=== PATIENT | female | born 1955 | race Caucasian/White ===

== ENCOUNTER 2017-04-04 06:53 | Day surgery (SDC) | payer BC ==
[~2017-04-04] VITALS: Ht 154.9 cm; Wt 68.0 kg
[~2017-04-04 06:53] MED LIST: MECL-106 PO; OMEP20TA7 PO
[2017-04-04 07:40] LABS: BASOPHILS % (AUTO) 0 % (0-10); EOSINOPHILS % (AUTO) 0 % (0-10); LYMPHOCYTES # (AUTO) 1.4 X 10^3 (1.0-4.0); LYMPHOCYTES % (AUTO) 9 % (12-44); MEAN CORPUSCULAR HEMOGLOBIN 30 PG (25-34); MEAN CORPUSCULAR HGB CONC 34 G/DL (32-36); MEAN CORPUSCULAR VOLUME 88 FL (80-99); MEAN PLATELET VOLUME 11.2 FL (7.4-10.4); MONOCYTES # (AUTO) 0.3 X 10^3 (0.0-1.0); MONOCYTES % (AUTO) 2 % (0-12); NEUTROPHILS # (AUTO) 13.1 X 10^3 (1.8-7.8); NEUTROPHILS % (AUTO) 88 % (42-75); PLATELET COUNT 270 10^3/uL (130-400); RED BLOOD COUNT 4.78 10^6/uL (4.35-5.85); RED CELL DISTRIBUTION WIDTH 14.9 % (10.0-14.5); WHITE BLOOD COUNT 14.8 10^3/uL (4.3-11.0)
[2017-04-04 07:59] LABS: ALANINE AMINOTRANSFERASE 14 U/L (0-55); ALBUMIN 4.6 G/DL (3.2-4.5); ANION GAP 11 MMOL/L (5-14); ASPARTATE AMINO TRANSFERASE 13 U/L (5-34); BILIRUBIN,TOTAL 0.4 MG/DL (0.1-1.0); BLOOD UREA NITROGEN 11 MG/DL (7-18); BUN/CREATININE RATIO 14; CALCIUM 10.1 MG/DL (8.5-10.1); CARBON DIOXIDE 24 MMOL/L (21-32); CHLORIDE 104 MMOL/L (98-107); CREATININE SERUM 0.76 MG/DL (0.60-1.30); GFR ESTIMATED > 60; GLUCOSE 123 MG/DL (70-105); POTASSIUM 4.1 MMOL/L (3.6-5.0); SODIUM 139 MMOL/L (135-145); TOTAL PROTEIN 7.9 G/DL (6.4-8.2)
[2017-04-04] MEDS ORDERED: fentaNYL INJECTION 100 MCG/2 ML AMP IVP ONE ×2 (08:00→08:45)
[2017-04-04] MEDS ORDERED: NS IV 1000 ML 1,000 ML IV SCH (08:00)
[2017-04-04 08:07] LABS: BAND NEUTROPHILS 0 %; BASOPHILS % (MANUAL) 0 %; EOSINOPHILS % (MANUAL) 0 %; LYMPHOCYTES % (MANUAL) 12 %; NEUTROPHILS % (MANUAL) 85 %
--- NOTE | 2017-04-04 08:18 | ED Abdominal Pain ---
General Chief Complaint: Abdominal/GI Problems Stated Complaint: GALLBLADDER PAIN Nursing Triage Note: AMB TO ED C/O R UPPER ABD PAIN THINKS IT IS HER GALLBLADDER WAS TOLD BACK IN OCT AFTER BEING SEEN IN ED THAT SHE NEEDED TO SEE A SURGEON. DID NOT FOLLOW UP. ONSET OF PAIN IN R UPPER QUAD SINCE LAST NIGHT. Sepsis Screen: No Definite Risk Source of Information: Patient Exam Limitations: No Limitations History of Present Illness Time Seen By Provider: 08:13 Initial Comments The patient is a 61-year-old white female who presents with complaints of right upper quadrant abdominal pain. She reports that this is happened intermittently. The first time she recalls was in September or October 2016. She had an ER visit at that time. She believes that she was told she had gallstones. Her finances did not allow her to consider seeing a surgeon at that time. Last night she ate duncan and eggs for supper and a couple of hours she began to have recurrent right upper quadrant pain. She also states that she has vomited 3 or 4 times. Review of her ER visits shows that a CT scan of the abdomen and pelvis was done. No abnormalities were noted including no mention of gallstones. Timing/Duration: 12-24 Hours Severity/Quality: Moderate Location: RUQ Radiation: Flank (right), Other Associated Symptoms: Nausea/Vomiting Allergies and Home Medications Allergies Coded Allergies: No Known Drug Allergies (Unverified , 09/22/16) Home Medications Meclizine HCl 25 Mg Tablet, 25 MG PO Q6H PRN for DIZZINESS, #10 Prescribed by: AYAD BURGER on 09/22/162144 Omeprazole 20 Mg Tablet.dr, 20 MG PO DAILY, #30 Prescribed by: AYAD BURGER on 09/22/162144 Review of Systems Constitutional: see HPI EENTM: No Symptoms Reported Respiratory: No Symptoms Reported Cardiovascular: No Symptoms Reported Gastrointestinal: See HPI, Abdominal Pain, Nausea, Vomiting Genitourinary: No Symptoms Reported Musculoskeletal: no symptoms reported Skin: no symptoms reported Psychiatric/Neurological: No Symptoms Reported Endocrine: No Symptoms Reported Hematologic/Lymphatic: No Symptoms Reported Past Oaanwkc-Gopraz-Edxuou Hx Patient Social History Alcohol Use: Denies Use Recreational Drug Use: No Smoking Status: Current Everyday Smoker Recent Foreign Travel: No Contact w/Someone Who Travel: No Recent Infectious Disease Expo: No Recent Hopitalizations: No Seasonal Allergies Seasonal Allergies: Yes Surgeries HX Surgeries: Yes Surgeries: Hysterectomy Respiratory Hx Respiratory Disorders: No Cardiovascular Hx Cardiac Disorders: No Neurological Hx Neurological Disorders: No Reproductive System Hx Reproductive Disorders: No 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 Genitourinary Hx Genitourinary Disorders: No Gastrointestinal Hx Gastrointestinal Disorders: No Musculoskeletal Hx Musculoskeletal Disorders: No Endocrine Hx Endocrine Disorders: No HEENT HX ENT Disorders: No Cancer Hx Cancer: No Psychosocial Hx Psychiatric Problems: No Integumentary HX Skin/Integumentary Disorder: No Blood Transfusions Hx Blood Disorders: No Adverse Reaction to a Blood Tr: No Family Medical History Significant Family History: Heart Disease Physical Exam Vital Signs VS - Last 72 Hours, by Label 04/04/17 06:58 Temp 98.8 Pulse 91 Resp 18 B/P (MAP) 175/85 O2 Delivery Room Air Capillary Refill : Less Than 3 Seconds General Appearance: mild distress, moderate distress HEENT: normal ENT inspection Neck: full range of motion Respiratory: chest non-tender, lungs clear, normal breath sounds, no respiratory distress, no accessory muscle use Cardiovascular: normal peripheral pulses, regular rate, rhythm, no edema, no gallop, no JVD, no murmur Gastrointestinal: tenderness Extremities: normal range of motion, non-tender, normal inspection, no pedal edema, no calf tenderness, normal capillary refill, pelvis stable Back: normal inspection Neurologic/Psychiatric: flyer builder II-XII nml as tested, no motor/sensory deficits, alert, normal mood/affect, oriented x 3 Lymphatic: no adenopathy Progress/Results/Core Measures Results/Orders Lab Results Laboratory Tests Test 04/04/17 07:24 04/04/17 08:20 Range/Units White Blood Count 14.8 H 4.3-11.0 10^3/uL Red Blood Count 4.78 4.35-5.85 10^6/uL Hemoglobin 14.2 11.5-16.0 G/DL Hematocrit 42 35-52 % Mean Corpuscular Volume 88 80-99 FL Mean Corpuscular Hemoglobin 30 25-34 PG Mean Corpuscular Hemoglobin Concent 34 32-36 G/DL Red Cell Distribution Width 14.9 H 10.0-14.5 % Platelet Count 270 130-400 10^3/uL Mean Platelet Volume 11.2 H 7.4-10.4 FL Neutrophils (%) (Auto) 88 H 42-75 % Lymphocytes (%) (Auto) 9 L 12-44 % Monocytes (%) (Auto) 2 0-12 % Eosinophils (%) (Auto) 0 0-10 % Basophils (%) (Auto) 0 0-10 % Neutrophils # (Auto) 13.1 H 1.8-7.8 X 10^3 Lymphocytes # (Auto) 1.4 1.0-4.0 X 10^3 Monocytes # (Auto) 0.3 0.0-1.0 X 10^3 Eosinophils # (Auto) 0.0 0.0-0.3 10^3/uL Basophils # (Auto) 0.0 0.0-0.1 10^3/uL Neutrophils % (Manual) 85 % Lymphocytes % (Manual) 12 % Monocytes % (Manual) 3 % Eosinophils % (Manual) 0 % Basophils % (Manual) 0 % Band Neutrophils 0 % Blood Morphology Comment NORMAL Sodium Level 139 135-145 MMOL/L Potassium Level 4.1 3.6-5.0 MMOL/L Chloride Level 104 98-107 MMOL/L Carbon Dioxide Level 24 21-32 MMOL/L Anion Gap 11 5-14 MMOL/L Blood Urea Nitrogen 11 7-18 MG/DL Creatinine 0.76 0.60-1.30 MG/DL Estimat Glomerular Filtration Rate > 60 BUN/Creatinine Ratio 14 Glucose Level 123 H 70-105 MG/DL Calcium Level 10.1 8.5-10.1 MG/DL Total Bilirubin 0.4 0.1-1.0 MG/DL Aspartate Amino Transf (AST/SGOT) 13 5-34 U/L Alanine Aminotransferase (ALT/SGPT) 14 0-55 U/L Alkaline Phosphatase 100 40-136 U/L Total Protein 7.9 6.4-8.2 G/DL Albumin 4.6 H 3.2-4.5 G/DL Urine Color YELLOW Urine Clarity CLEAR Urine pH 7 5-9 Urine Specific [place] 1.015 L 1.016-1.022 Urine Protein NEGATIVE NEGATIVE Urine Glucose (UA) NEGATIVE NEGATIVE Urine Ketones 1+ H NEGATIVE Urine Nitrite NEGATIVE NEGATIVE Urine Bilirubin NEGATIVE NEGATIVE Urine Urobilinogen NORMAL NORMAL MG/DL Urine Leukocyte Esterase NEGATIVE NEGATIVE Urine RBC (Auto) 3+ H NEGATIVE Urine RBC 25-50 H /HPF Urine WBC NONE /HPF Urine Squamous Epithelial Cells 2-5 /HPF Urine Crystals PRESENT H /LPF Urine Amorphous Sediment LARGE PERLA PHOSPHATE H /LPF Urine Bacteria NEGATIVE /HPF Urine Casts NONE /LPF Urine Mucus MODERATE H /LPF Urine Culture Indicated NO My Orders Orders - MARIAH AUSTIN MD Cbc With Automated Diff (04/04/17 07:04) Comprehensive Metabolic Panel (04/04/17 07:04) Ua Culture If Indicated (04/04/17 07:04) Manual Differential (04/04/17 07:24) Fentanyl Injection (Sublimaze Injection (04/04/17 08:00) Ns Iv 1000 Ml (Sodium Chloride 0.9%) (04/04/17 08:00) Us Gallbladder [id number] (04/04/17 07:57) Fentanyl Injection (Sublimaze Injection (04/04/17 08:45) Medications Given in ED Current Medications Medications Dose Ordered Sig/Wood Route Start Time Stop Time Status Last Admin Dose Admin Fentanyl Citrate 25 mcg ONCE ONCE IVP 04/04/17 08:00 04/04/17 08:01 DC 04/04/17 08:01 25 MCG Fentanyl Citrate 50 mcg ONCE ONCE IVP 04/04/17 08:45 04/04/17 08:46 DC 04/04/17 08:49 50 MCG Vital Signs/I&O Vital Sign - Last 12Hours 04/04/17 06:58 Temp 98.8 Pulse 91 Resp 18 B/P (MAP) 175/85 O2 Delivery Room Air Blood Pressure Mean: 115 Departure Communication Progress Notes Ultrasound showed multiple gallstones and evidence of acutely inflamed gallbladder Dr. Wong was called at 08 27 and reported he is on his way in and will see the patient on arrival. 0905 Dr. Wong arrived and examined the patient. The plan is to go to the OR as soon as a room is available. He needs to leave she Impression Impression: Primary Impression: acute cholecystitis Disposition: ADMITTED INPATIENT Condition: Stable/Unchanged Decision to Admit Reason: Admit from ER (General) Decision to Admit/Date: April 04, 2017 Time/Decision to Admit Time: 09:04 Departure-Patient Inst. Referrals: NO,LOCAL PHYSICIAN (PCP/Family) Primary Care Physician MARIAH AUSTIN MD April 04, 2017 08:18
[2017-04-04 08:27] LABS: BILIRUBIN,URINE NEGATIVE (NEGATIVE); KETONES,URINE 1+ (NEGATIVE); LEUKOCYTE ESTERASE ,URINE NEGATIVE (NEGATIVE); NITRITE,URINE NEGATIVE (NEGATIVE); PH,URINE 7 (5-9); PROTEIN,URINE NEGATIVE (NEGATIVE); UROBILINOGEN,URINE NORMAL (NORMAL)
--- NOTE | 2017-04-04 08:39 | Diagnostic Imaging Report ---
PROCEDURE: US Gallbladder. TECHNIQUE: Multiple real-time grayscale images were obtained over the right upper quadrant in various projections. INDICATION: Right upper quadrant pain and nausea. FINDINGS: The visualized portions of the pancreas appear unremarkable. The liver is hyperechoic with no discrete focal mass. The gallbladder demonstrates multiple nonmobile stones. There is mild pericholecystic fluid. The gallbladder wall is slightly thickened. The CBD is obscured by bowel gas. The right kidney is 11.8 cm with no hydronephrosis or focal lesion. No ascites is seen. The sonographic Clifford sign is reportedly positive. IMPRESSION: Findings are concerning for acute cholecystitis. The findings were discussed with Dr. Carlisle at the time of dictation. Dictated by: Dictated on workstation # [id number]
[2017-04-04] MEDS ORDERED: BUPIVACAINE 0.5% 30 ML (SENSORCAINE) VIAL ONE (09:39)
[2017-04-04] MEDS ORDERED: LIDOCAINE 1% INJ 20 ML (XYLOCAINE) VIAL ONE (09:39)
[2017-04-04] MEDS ORDERED: FAMOTIDINE 20MG/2ML IV (PEPCID) ONE (09:45)
[2017-04-04] MEDS ORDERED: fentaNYL INJECTION 100 MCG/2 ML AMP IV ONE (09:45)
[2017-04-04] MEDS ORDERED: FAMOTIDINE 20MG/2ML IV (PEPCID) IV ONE (09:45)
--- NOTE | 2017-04-04 09:46 | Consultation ---
History of Present Illness History of Present Illness Patient Consulted On(lorene/time) 04/04/17 09:41 Date of Admission History of Present Illness Surgery asked to consult in ER regarding RUQ pain and gallbladder symtpoms. HPI The patient is a 61-year-old white female who presents with complaints of right upper quadrant abdominal pain. She reports that this has happened intermittently, for about a year. Prior to this episode was October 2016. She had an ER visit at that time. She believes that she was told she had gallstones. Her finances did not allow her to consider seeing a surgeon at that time. Last night she ate duncan and eggs for supper and a couple of hours she began to have recurrent right upper quadrant pain, that radiated to her right shoulder blade. She rated the pain as 10 out of 10. Sharp stabbing, crampy pain. She also states that she has vomited 3 or 4 times. US last night showed gallstones, thickened GB wall and pericholecystic fluid. She thinks this occurs with fried fatty foods. Allergies and Home Medications Allergies Coded Allergies: No Known Drug Allergies (Unverified , 09/22/16) Home Medications Meclizine HCl 25 Mg Tablet, 25 MG PO Q6H PRN for DIZZINESS, #10 Prescribed by: AYAD BURGER on 09/22/162144 Omeprazole 20 Mg Tablet.dr, 20 MG PO DAILY, #30 Prescribed by: AYAD BURGER on 09/22/165 Past Oxekspu-Dovoju-Oclfjf Hx Patient Social History Alcohol Use: Denies Use Recreational Drug Use: No Smoking Status: Current Everyday Smoker Recent Foreign Travel: No Contact w/Someone Who Travel: No Recent Infectious Disease Expo: No Recent Hopitalizations: No Seasonal Allergies Seasonal Allergies: Yes Surgeries HX Surgeries: Yes Surgeries: Hysterectomy Respiratory Hx Respiratory Disorders: No Cardiovascular Hx Cardiac Disorders: No Neurological Hx Neurological Disorders: No Reproductive System Hx Reproductive Disorders: No 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 Genitourinary Hx Genitourinary Disorders: No Gastrointestinal Hx Gastrointestinal Disorders: No Musculoskeletal Hx Musculoskeletal Disorders: No Endocrine Hx Endocrine Disorders: No HEENT HX ENT Disorders: No Cancer Hx Cancer: No Psychosocial Hx Psychiatric Problems: No Integumentary HX Skin/Integumentary Disorder: No Blood Transfusions Hx Blood Disorders: No Adverse Reaction to a Blood Tr: No Family Medical History Significant Family History: Heart Disease (father had CABGx4), Cancer (mother had brain cancer), Diabetes (son) Review of Systems-General Constitutional: chills, diaphoresis, weakness EENTM: No blurred vision, No epistaxis, No mouth swelling, No throat swelling, No vision loss Respiratory: No cough, No dyspnea on exertion Cardiovascular: No chest pain, No edema, No palpitations Gastrointestinal: see HPI, No diarrhea, loss of appetite, No melena Genitourinary: No decreased output, No dysuria, No frequency : No Musculoskeletal: No gout, No joint pain, No muscle stiffness Skin: No change in color, No change in hair/nails Psychiatric/Neurological: Denies Anxiety, Denies Depressed Other denies recurrent infection, no heat or cold intolerance Physical Exam-General Problems Physical Exam Vital Signs Vital Sign - Last 12Hours 04/04/17 04/04/17 06:58 09:28 Temp 98.8 Pulse 91 Resp 18 B/P (MAP) 175/85 Pulse Ox 96 O2 Delivery Room Air Capillary Refill : Less Than 3 Seconds General Appearance: WD/WN, moderate distress, obese Eyes: Bilateral Eye EOMI, Bilateral Eye PERRL HEENT: pharynx normal, No scleral icterus (R), No scleral icterus (L) Neck: non-tender, full range of motion, supple, normal inspection Respiratory: chest non-tender, lungs clear, normal breath sounds, no respiratory distress, no accessory muscle use Cardiovascular: regular rate, rhythm, no edema, no murmur Gastrointestinal: normal bowel sounds, soft, no organomegaly, tenderness (RUQ) Rectal: deferred Back: no CVA tenderness, no vertebral tenderness Extremities: non-tender, no pedal edema, no calf tenderness Neurologic/Psychiatric: battery container tester II-XII nml as tested, no motor/sensory deficits, alert, normal mood/affect, oriented x 3 Skin: normal color, warm/dry Lymphatic: no adenopathy (neck, axilla, or groin) Data Review Labs Laboratory Tests 04/04/17 07:24: White Blood Count 14.8H, Red Blood Count 4.78, Hemoglobin 14.2, Hematocrit 42, Mean Corpuscular Volume 88, Mean Corpuscular Hemoglobin 30, Mean Corpuscular Hemoglobin Concent 34, Red Cell Distribution Width 14.9H, Platelet Count 270, Mean Platelet Volume 11.2H, Neutrophils (%) (Auto) 88H, Lymphocytes (%) (Auto) 9L, Monocytes (%) (Auto) 2, Eosinophils (%) (Auto) 0, Basophils (%) (Auto) 0, Neutrophils # (Auto) 13.1H, Lymphocytes # (Auto) 1.4, Monocytes # (Auto) 0.3, Eosinophils # (Auto) 0.0, Basophils # (Auto) 0.0, Neutrophils % (Manual) 85, Lymphocytes % (Manual) 12, Monocytes % (Manual) 3, Eosinophils % (Manual) 0, Basophils % (Manual) 0, Band Neutrophils 0, Blood Morphology Comment NORMAL, Sodium Level 139, Potassium Level 4.1, Chloride Level 104, Carbon Dioxide Level 24, Anion Gap 11, Blood Urea Nitrogen 11, Creatinine 0.76, Estimat Glomerular Filtration Rate > 60, BUN/Creatinine Ratio 14, Glucose Level 123H, Calcium Level 10.1, Total Bilirubin 0.4, Aspartate Amino Transf (AST/SGOT) 13, Alanine Aminotransferase (ALT/SGPT) 14, Alkaline Phosphatase 100, Total Protein 7.9, Albumin 4.6H 04/04/17 08:20: Urine Color YELLOW, Urine Clarity CLEAR, Urine pH 7, Urine Specific [place] 1.015L, Urine Protein NEGATIVE, Urine Glucose (UA) NEGATIVE, Urine Ketones 1+H, Urine Nitrite NEGATIVE, Urine Bilirubin NEGATIVE, Urine Urobilinogen NORMAL, Urine Leukocyte Esterase NEGATIVE, Urine RBC (Auto) 3+H, Urine RBC 25-50H, Urine WBC NONE, Urine Squamous Epithelial Cells 2-5, Urine Crystals PRESENTH, Urine Amorphous Sediment LARGE PERLA PHOSPHATEH, Urine Bacteria NEGATIVE, Urine Casts NONE, Urine Mucus MODERATEH, Urine Culture Indicated NO Assessment/Plan Assessment/Plan Assessment/Plan IMP: Acute Cholecystitis with Cholelithiasis PLAN: To OR for Laparoscopic Cholecystectomy, possible open, possible cholangiogram. IVF, IV ABX just prior to OR. Discussed procedure with pt and her , risks and complications including but not limited to; pain, bleeding, infection, scar, damage to bowel or bile duct and need for further procedure. All questions answered to their satisfaction. CHAS JARRELL DO April 04, 2017 09:46
[2017-04-04] MEDS ORDERED: LACTATED RINGERS 1,000 ML IV ONE (09:51)
[2017-04-04] MEDS ORDERED: LIDOCAINE JELLY 2% (XYLOCAINE) 5 ML TUBE ONE (09:51)
[2017-04-04] MEDS ORDERED: fentaNYL INJECTION 100 MCG/2 ML AMP ONE ×2 (09:51→10:18)
[2017-04-04] MEDS ORDERED: ONDANSETRON 4 MG/2 ML (SDV) Z0FRAN ONE (09:51)
[2017-04-04] MEDS ORDERED: ROCURONIUM 50 MG/5 ML (ZEMURON) VIAL IV ONE (09:51)
[2017-04-04] MEDS ORDERED: proPOfol 200 MG/20 ML (DIPRIVAN) VIAL IV ONE (09:51)
[2017-04-04] MEDS ORDERED: LIDOCAINE PF 2% 10 ML (XYLOCAINE) AMP ONE (09:51)
[2017-04-04] MEDS: LACTATED RINGERS 1,000 ML IV PRN ×2 (09:52→11:12)
[2017-04-04] MEDS ORDERED: MIDAZOLAM 2 MG/2 ML (VERSED) VIAL ONE (09:52)
[2017-04-04] MEDS ORDERED: ceFAZolin 2 GM/50 ML NS 50 ML ONE (09:54)
[2017-04-04 10:18] VITALS: BP 158/80
[2017-04-04] MEDS ORDERED: ESMOLOL 100 MG/10 ML (BREVIBLOC) VIAL ONE (10:30)
[2017-04-04] MEDS ORDERED: ceFAZolin 2 GM/50 ML NS 50 ML IV ONE (10:45)
[2017-04-04] MEDS ORDERED: GLYCOPYRROLATE 0.2 MG/ML (ROBINUL) 2 ML VIAL ONE (11:06)
[2017-04-04] MEDS ORDERED: NEOSTIGMINE (BLOXIVERZ ) 1 MG/1ML 10 ML VIAL ONE (11:06)
--- NOTE | 2017-04-04 11:14 | Progress Note-Post Operative ---
Post-Operative Progess Note Surgeon (s)/Attorney Lawyer (s) Surgeon CHAS JARRELL DO Attorney Lawyer: Yrn Pre-Operative Diagnosis Acute anton/anton Post-Operative Diagnosis same + cystic duct obstruction Post-Op Procedure Note Date of Procedure: April 04, 2017 Name of Procedure Performed: Lap anton with IOC Description of the Procedure: same Findings of the Procedure as above Anesthesia Type GET Estimated blood loss (mL): less than 5cc Specimen(s) collected/removed GB and contents CHAS JARRELL DO April 04, 2017 11:14
[2017-04-04] MEDS ORDERED: HYDR-3812 PO ×2 (11:15)
--- NOTE | 2017-04-04 11:16 | Discharge Inst-Surgical ---
Discharge Inst-Surgical Depart Medication/Instructions New, Converted or Re-Newed RX: RX Given to Pt/Family Patient Instructions Follow up Appt: Make appointment for 1 week, . Instructions: No lifting greater than 10 pounds. No strenuous activity. May shower in 24 hours, no tub bath or soaking. Use incentive spirometer at home as directed. No Smoking Skin/Wound Care: May remove bandages. You need to leave the white strips over incision on they will fall off on their own. Symptoms to Report: Appetite Changes, Extremity Discoloration, Numbness/Tingling, Swelling Increased , Bleeding Excessive, Eyesight Changes, Pain Increased, Urine Color Change, Constipation(Persistent), Fever over 101 degree F, Pain/Pressure in chest, Urinating Difficulty, Cough Up/Vomit Blood, Heart Beat Irreg/Pounding, Pain/ Pressure in jaw, Vaginal Bleeding Increase, Cramps in feet or legs, Lightheadedness, Pain/Pressure in shoulder, Diarrhea(Persistent), Memory Changes Suddenly, Questions/Concerns, Weight gain consecutive days, Dizziness/ Fainting, Nausea/Vomiting, Shortness of Breath, Weight gain over 2 pounds. If eyes or skin turn yellow notify physician. If questions or concerns contact your physician Or seek help at emergency department. Activity Activity as Tolerated: Yes Activity Instructions: Avoid Stress to Incision Driving Instructions: No Driving/Refer to Dr. Suarez Discharge Diet: Avoid Fatty Foods, Low Fat/Low Cholesterol If Any Problems/Questions/Issu: Contact Your Physician, Go to Emergency Room Skin/Wound Care Infection Signs and Symptoms: Increased Redness, Foul Odor of Wound, Increased Drainage, Skin Itchy or Has a Rash, Increased Swelling, Temperature Above 101 F Bathing Instructions: Shower Stitches/Olivia/Dermabond Dis: Dermabond Ice Pack: Ice On and Off Site CHAS JARRELL DO April 04, 2017 11:16
[2017-04-04] MEDS ORDERED: NALOXONE 0.4 MG/ML 1 ML (NARCAN) VIAL ONE (11:25)
[2017-04-04] MEDS ORDERED: SEVOFLURANE (ULTANE) 15 ML INHAL SOLN ONE (11:36)
[2017-04-04] MEDS ORDERED: MEPERIDINE (DEMEROL) INJ 50 MG/ML IVP PRN (11:45)
[2017-04-04] MEDS ORDERED: morphine INJ 10 MG/ML 1ML (SYR OR VIAL) IVP PRN (11:45)
[2017-04-04] MEDS ORDERED: ONDANSETRON 4 MG/2 ML (SDV) Z0FRAN IVP PRN (11:45)
--- NOTE | 2017-04-04 12:13 | Diagnostic Imaging Report ---
EXAMINATION: Attempted intraoperative cholangiogram. TECHNIQUE: Intraoperative views of the abdomen were performed. FINDINGS: 27 seconds of fluoroscopy time and 2 cc of Omnipaque 300 were utilized. IMPRESSION: Contrast is seen around the cystic duct and does not opacify the common bile duct. Dictated by: Dictated on workstation # [id number]
[2017-04-04 12:30] VITALS: BP 134/73
[2017-04-04 13:00] VITALS: BP 135/73
[2017-04-04 13:30] VITALS: BP 134/75
[2017-04-04 14:30] VITALS: BP 134/75
[2017-04-04 15:25] VITALS: BP 134/75
--- NOTE | 2017-04-05 08:47 | OPERATIVE REPORT ---
DATE OF SERVICE: 04/04/2017 PREOPERATIVE DIAGNOSES: Acute cholecystitis, cholelithiasis. POSTOPERATIVE DIAGNOSES: Acute cholecystitis, cholelithiasis and obstruction of cystic duct. SURGEON: Dr. Mario Wong DIRECTOR BIOMEDICAL ENGINEERING: Dr. Pool ANESTHESIA: General endotracheal tube. PROCEDURES: Laparoscopic cholecystectomy and intraoperative cholangiogram. SPECIMENS: Gallbladder and contents. BLOOD LOSS: Less than 5 mL FLUIDS: Per anesthesia. POSTOPERATIVE CONDITION: Stable. INDICATIONS FOR THE PROCEDURE: The patient is a 61-year-old female who has pain in the right upper quadrant, elevated white count, liver functions normal. Ultrasound showed stones, pericholecystic fluid and thickened gallbladder wall. This is acute cholelithiasis and cholecystitis. FINDINGS: The patient had acute cholecystitis and cholelithiasis. She had edema around the gallbladder. She had some adhesions and the cystic duct was obstructed. PROCEDURE NOTE: After informed consent was obtained, the patient was brought to the operating room and placed on the table in supine position. She was sterilely prepped and draped in a normal fashion. Local lidocaine was used to infiltrate the skin above the umbilicus and then made an incision with an 11-blade, carried down through the skin, into subcutaneous tissue, then deeply down in the subcutaneous tissue with Bovie electrocautery down to the fascia. Fascia was incised with Bovie electrocautery. Then, bluntly under the peritoneum, I swept a finger around, placed an 0 Vicryl [id number] suture and placed an 11 mm trocar port under direct visualization and created pneumoperitoneum and then placed three more ports in a normal fashion using local lidocaine, an 11-blade for a stab incision and the VersaStep system all done under direct visualization, one in the xiphoid and two in the right upper quadrant. The patient was then placed in reversed Trendelenburg. We were able to grasp the gallbladder at the fundus, it was edematous and a little bit of erythema around it, taken in superior direction and started taking down some adhesions to the gallbladder. This usually indicates cholecystitis. Able to grasp down the Elidia's pouch and pull it in inferolateral direction, started dissecting out the cystic duct and cystic artery. Encountered the cystic artery first, placed 2 clips proximally and one disability and then able to get around the cystic duct and placed 1 clip the distally. Cut the cystic duct with Metzenbaum scissors, placed a cholangiogram catheter, got a little bit of fluid to go past. I x-rayed the clip, it was a clip, shot a cholangiogram, shot it twice, but unfortunately could not get contrast to go down the common bile duct. I believe there is an obstruction in the cystic duct and I actually did not get any bile back out of the cystic duct. At this point, I then elected to stop trying the cholangiogram because we could not get it and I actually tried to feel with the [place]'s, could not feel any stones at the base of the cystic duct, so I elected to just clip the duct twice and then cut the duct already in the Metzenbaum scissors and then removed the gallbladder from the bed with a little bit of L-hook cautery. Once this was completely removed, placed a baggy down and placed the gallbladder in the bag and then removed this through the supraumbilical incision. Placed the port back in the abdomen and copiously irrigated with normal saline, suctioned this up, there was no bleeding from the bed of the liver, pictures were taken, pictures were also taken of the duct and artery. Then, the patient was placed supine, removed all ports under direct visualization and allowed pneumoperitoneum to escape as well as suction it out and then closed the supraumbilical incision, closing the fascia with 0 Vicryls that were previously placed. Copiously irrigated all incisions with normal saline and then closed the three small 5 mm incisions with a single interrupted 4-0 undyed Monocryl subcuticular stitch and then closed supraumbilical incision with 3 interrupted 4-0 undyed Monocryl subcuticular stitches. Area was cleaned and dried. Dermabond placed. The patient then transferred to recovery room in stable condition. Sponge, needle and instrument counts correct at the end of the case. Dr. Pool assisted in making incisions, identifying anatomy, retraction and closing the incisions. Job ID: [id number] DocumentID: [id number] Dictated Date: 04/04/2017 11:58:29 Space Sciences Director Date: 04/05/2017 08:47:06 Dictated By: DO RENNY SCHWAB
== END 2017-04-04 15:25 | disposition home or self-care (01) ==
LOC: EDUNIT# 06:53 → ER 06:57 → SDC 09:04
PROVIDERS: ATTEND Surgery
DX: K80.67 Calculus of gallbladder and bile duct with acute and chronic cholecystitis with obstruction (principal); F17.210 Nicotine dependence, cigarettes, uncomplicated
CPT/HCPCS: 36415; 76705; 80053; 81000; 85007; 85027; 87081; 88304; 96374; 96376

== ENCOUNTER → 2017-04-05 | Outpatient (CLI) | payer BC ==
[~2017-04-05] MED LIST changes: +HYDR-3812 PO
--- NOTE | 2017-04-05 12:26 | Diagnostic Imaging Report ---
PROCEDURE: MR imaging cholangiography-pancreatography. TECHNIQUE: Multiplanar imaging of the abdomen was performed on a 1.5 Skye magnet without contrast. 3D reconstructions were made for the MRCP INDICATION: Cholecystectomy one day ago. Persistent abdominal pain. COMPARISON: No recent studies for comparison. FINDINGS: Thin and thick slab technique MRCP with 3-D reconstruction. The intrahepatic radicles are not dilated. Common bile duct is not dilated and is well visualized to the duodenum. Pancreatic duct is not distended. There is a small amount of fluid in the biliary fossa with no significant volume of ascites present. Liver parenchyma appears normal. The portal and hepatic vein are patent. Pancreas is normal. The spleen is normal. Adrenal glands appear normal. The kidneys appear normal. Aorta is not dilated. The stomach and small bowel visualized appear normal. The transverse colon, hepatic flexure and splenic flexure appear normal. There is no intra-abdominal adenopathy. IMPRESSION: 1. No evidence of bile duct dilatation or obstruction with the common duct normal throughout. 2. There is a small amount of fluid within the biliary fossa likely secondary to recent surgery. No significant free fluid volume noted within the abdomen. 3. Pancreas is normal with the pancreatic duct not dilated. Dictated by: Dictated on workstation # [id number]
== END ==
LOC: RAD 07:35
PROVIDERS: ATTEND Surgery
DX: K82.0 Obstruction of gallbladder (principal)
CPT/HCPCS: 74181